=== PATIENT | female | born 1990 | race Caucasian/White ===

== ENCOUNTER 2023-12-14 09:02 | Outpatient (OUT) | payer OTHER, SELFPAY ==
--- NOTE | 2023-12-14 09:05 | US_ITS ---
[address] [address] Patient Name: JUJU WHITE MRN: [id number] date: 1990 Sex: F Assigned Patient Location: [facility] Current Patient Location: [facility] Accession/Order Number: [id number] Exam Date: 12/14/2023 09:05 Report Date: 12/14/2023 10:22 At the request of: DONOVAN TOLBERT Procedure: US OB transvaginal EXAMINATION: US OB transvaginal HISTORY: MISSED MENSES COMPARISON: No relevant comparison available. FINDINGS: Buck intrauterine gestation Gestational sac: 2.07 cm, 6 weeks 4 days CRL: 0.4 cm, 6 weeks 1 day Yolk sac: 2.8 mm Heart rate: Not observed Cervix: Closed, 4.4 cm The uterus is normal, anteverted, anteflexed The ovaries are normal. Clinical age: 10 weeks 2 days Clinical BLANCA: 07/09/2024 Ultrasound age: 6 weeks 3 days Ultrasound BLANCA: 08/05/2024 US/US OB transvaginal IMPRESSION: Likely early intrauterine gestation. Continued surveillance recommended Electronically authenticated by: LUIS LEVINE Date: 12/14/2023 10:22
== END 2023-12-14 09:03 | disposition home or self-care (01) ==
PROVIDERS: Visit Provider Obstetrics & Gynecology
DX: N92.6 Irregular menstruation, unspecified (principal)
CPT/HCPCS: 76817

== ENCOUNTER 2024-01-10 12:15 | Outpatient (OUT) | payer OTHER, SELFPAY ==
[2024-01-10 14:27] LABS: HCG Quantitative 113 mIU/mL
== END 2024-01-10 12:16 | disposition home or self-care (01) ==
LOC: LAB 12:16
PROVIDERS: PCP Family Medicine; Visit Provider Obstetrics & Gynecology
DX: N92.6 Irregular menstruation, unspecified (principal); Z87.59 Personal history of other complications of pregnancy, childbirth and the puerperium
CPT/HCPCS: 36415; 84702

== ENCOUNTER 2024-01-19 09:11 | Outpatient (OUT) | payer SELFPAY ==
--- OUTSIDE RECORDS SUMMARY | 2024-01-19 09:16 | XMS_ITS | CCD ---
Author Organization [facility] Care Team Providers Care Aircraft Systems Repairer Name Role Phone JULIANNA LUIS Archibald Consulting Unavailable DIDI, DONOVAN Admitting Unavailable DIDI, DONOVAN Attending Unavailable DIDI, DONOVAN Consulting Unavailable DIDI, DONOVAN Consulting Unavailable DIDI, DONOVAN Admitting Unavailable DIDI, DONOVAN Attending Unavailable DIDI, DONOVAN Consulting Unavailable DIDI, DONOVAN Admitting Unavailable DIDI, DONOVAN Attending Unavailable Frantz GEIGER Primary Care Physician DIDI, Donovan R Attending Unavailable DIDI, Donovan R Admitting Unavailable DIDI, Donovan R Attending Unavailable DIDI, Donovan R Admitting Unavailable DIDI, Donovan R Admitting Unavailable DIDI, Donovan R Attending Unavailable DIDI, Donovan R Attending Unavailable DIDI, Donovan R Admitting Unavailable DIDI, Donovan R Attending Unavailable DIDI, Donovan R Admitting Unavailable DIDI, DONOVAN Attending Unavailable DIDI, Donovan R Admitting Unavailable DIDI, Donovan R Attending Unavailable Problems Problem Classification Problem Date Documented Date Episodic/Chronic Immunizations and screening for infectious disease (1 source) Encounter for screening for human papillomavirus (HPV); Translations: [ENC SCREENING HUMAN PAPILLOMAVIRUS] Onset: 07-27-2020 Episodic Menstrual disorders (4 sources) Secondary amenorrhea; Translations: [SECONDARY AMENORRHEA] Onset: 07-26-2020 Chronic Other screening for suspected conditions (not mental disorders or infectious disease) (5 sources) Encounter for screening for malignant neoplasm of cervix; Translations: [ENC SCREENING MALIG NEOPLASM CERV] Onset: 07-26-2020 Episodic Results Test Name Value Interpretation Reference Range [facility] 01-05-2024 HCG.beta subunit Qn 1058 m[IU]/mL High 1-3 [facility] Comment on above: Result Comment: 'F N ON < 1 - 3' ' 0.2 - 1 WEEK = 5 TO 50' ' 1 - 2 WEEKS = 50 - 500' ' 2 - 3 WEEKS = 100 - 5000' ' 3 - 4 WEEKS = 500 - 85122' ' 4 - 5 WEEKS = 1000 - 22330' ' 5 - 6 WEEKS = 28266 - 101768' ' 6 - 8 WEEKS = 67518 - 602663' ' 8 - 12 WEEKS = 54616 - 479768' Performed By: #### 2 [id number] #### Pankaj [facility] [address] [place] [address] CHEMISTRYOrdered By: SYSTEM SYSTEM on 01-05-2024 HCG.beta subunit Qn 1058 m[IU]/mL High 1 - 3 mIU/mL [facility] Comment on above: Result Comment: 'F N ON < 1 - 3' ' 0.2 - 1 WEEK = 5 TO 50' ' 1 - 2 WEEKS = 50 - 500' ' 2 - 3 WEEKS = 100 - 5000' ' 3 - 4 WEEKS = 500 - 83954' ' 4 - 5 WEEKS = 1000 - 98319' ' 5 - 6 WEEKS = 44632 - 092499' ' 6 - 8 WEEKS = 99445 - 943123' ' 8 - 12 WEEKS = 64657 - 018061' [facility] 01-02-2024 HCG.beta subunit Qn 7080 m[IU]/mL High 1-3 [facility] Comment on above: Result Comment: 'F N ON < 1 - 3' ' 0.2 - 1 WEEK = 5 TO 50' ' 1 - 2 WEEKS = 50 - 500' ' 2 - 3 WEEKS = 100 - 5000' ' 3 - 4 WEEKS = 500 - 92862' ' 4 - 5 WEEKS = 1000 - 98328' ' 5 - 6 WEEKS = 83904 - 129611' ' 6 - 8 WEEKS = 28357 - 119019' ' 8 - 12 WEEKS = 44178 - 676968' Performed By: #### 2 [id number] #### [facility] [address] [place] [address] CHEMISTRYOrdered By: SYSTEM SYSTEM on 01-02-2024 HCG.beta subunit Qn 7080 m[IU]/mL High 1 - 3 mIU/mL [facility] Comment on above: Result Comment: 'F N ON < 1 - 3' ' 0.2 - 1 WEEK = 5 TO 50' ' 1 - 2 WEEKS = 50 - 500' ' 2 - 3 WEEKS = 100 - 5000' ' 3 - 4 WEEKS = 500 - 28760' ' 4 - 5 WEEKS = 1000 - 51445' ' 5 - 6 WEEKS = 20341 - 727058' ' 6 - 8 WEEKS = 27058 - 745721' ' 8 - 12 WEEKS = 50215 - 787907' [facility] 12-31-20[place] [address] m[IU]/mL High 1-3 [facility] Comment on above: Result Comment: 'F N ON < 1 - 3' ' 0.2 - 1 WEEK = 5 TO 50' ' 1 - 2 WEEKS = 50 - 500' ' 2 - 3 WEEKS = 100 - 5000' ' 3 - 4 WEEKS = 500 - 92627' ' 4 - 5 WEEKS = 1000 - 32563' ' 5 - 6 WEEKS = 57895 - 323878' ' 6 - 8 WEEKS = 51412 - 412185' ' 8 - 12 WEEKS = 39598 - 616574' Performed By: #### 2 [id number] #### Lira [facility] [address] [place] [address] CHEMISTRYOrdered By: SYSTEM SYSTEM on 12-31-2023 [place] [address] m[IU]/mL High 1 - 3 mIU/mL [facility] Comment on above: Result Comment: 'F N ON < 1 - 3' ' 0.2 - 1 WEEK = 5 TO 50' ' 1 - 2 WEEKS = 50 - 500' ' 2 - 3 WEEKS = 100 - 5000' ' 3 - 4 WEEKS = 500 - 58332' ' 4 - 5 WEEKS = 1000 - 81282' ' 5 - 6 WEEKS = 82983 - 171551' ' 6 - 8 WEEKS = 03771 - 900334' ' 8 - 12 WEEKS = 24630 - 194198' ANTI-MULLERIAN HORMONEon Anti-Mullerian Hormone (AMH) 16.9 ng/mL [facility] Comment on above: Result Comment: For assays employing antibodies, the possibility exists for interference by heterophile antibodies in the samples.1 1.Zan Hoyt Interferences in Immunoassays - still a threat. Clin. Chem. 2000; 46: 8727-9707. This test was developed and its performance characteristics determined by [employer]. It has not been cleared or approved by the Food and Drug Administration. Reference Range: Females 31 - 35y: 0.66 - 8.75 Median 3.00 AMH concentrations of >= 1.06 ng/mL is correlated with a better response to ovarian stimulation, produced more retrievable oocytes and higher odds of live according to Javon et al. Fertility and Sterility. 2010: 94:7406-2072. The current AMH test method correlates with the study method with a slope of 0.94. Females at risk of ovarian hyperstimulation syndrome or polycystic ovarian syndrome (PCOS) may exhibit elevated serum AMH concentrations. AMH levels from PCOS patients may be 2 to 5 fold higher than age-appropriate reference interval values. Granulosa cell tumors of the ovary may secrete AMH along with other tumor markers. Elevated AMH is not specific for malignancy, and the assay should not be used exclusively to diagnose or exclude an AMH-secreting ovarian tumor. Performed By: #### A [facility] #### [facility] [address] [place] [address] Marcel Trish US PELVIS AND TRANSVAGon US PELVIS AND TRANSVAG EXAMINATION: US PELVIS AND TRANSVAG HISTORY: Secondary physiologic amenorrhea COMPARISON: No relevant comparison available. FINDINGS: Uterus is normal in size, contour and echotexture measuring 7.7 x 5.7 x 2.9 cm. Uterus is anteverted. The endometrium measures 8.1 mm thick, heterogeneous in echotexture with the area of anechoic echogenicity possibly representing small amount of fluid. The right ovary is normal in size, contour and echotexture measuring 4.7 x 3.6 x 3.1 cm. Normal resistive index of 0.5. Identified the right ovary is an area of anechoic echogenicity measuring 3.0 x 2.8 x 2.4 cm. Left ovary is normal in size, contour and echotexture measuring 4.3 x 1.9 0.6 cm. Normal resistive index of 0.5. Multiple subcentimeter peripheral areas of anechoic echogenicity, normal follicles IMPRESSION: 3 cm right ovarian simple cyst Multiple left ovarian follicles suggestive but not meeting criteria for polycystic ovaries Electronically authenticated by: LUIS LEVINE Date: 2020-07-30 07:43 Normal [facility] PAP ACOG PANEL 2: 30 to 65on 07-29-2020 Age Gdln ACOG Testing 30-65 Normal [facility] Comment on above: Performed By: #### 4 [id number] #### [facility] [address] [address] Marcel Chambers DIAGNOSIS: Comment Normal [facility] Comment on above: Result Comment: NEGA TIVE FOR INTRAEPITHELIAL LESION OR MALIGNANCY. Performed at: WB Performed By: #### 4 [id number] #### [facility] [address] [address] Marcel Chambers HPV Aptima Negative Normal Negative [facility] Comment on above: Result Comment: This nucleic acid amplification test detects fourteen high-risk HPV types (16,18,31,33,35,39,45,51,52,56,58,59,66,68) without differentiation. Performed at: =G Performed By: #### 4 [id number] #### [facility] [address] [address] Marcel Chambers Methodology: Comment Normal [facility] Comment on above: Result Comment: This liquid based ThinPrep(R) pap test was screened with the use of an image guided system. Performed at: WB Performed By: #### 4 [id number] #### [facility] [address] [address] Marcel Chambers Note: Comment Normal [facility] Comment on above: Result Comment: The Pap smear is a screening test designed to aid in the detection of premalignant and malignant conditions of the uterine cervix. It is not a diagnostic procedure and should not be used as the sole means of detecting cervical cancer. Both false-positive and false-negative reports do occur. . Performed at: WB Performed By: #### 4 [id number] #### [facility] [address] [address] Marcel Chambers Performed by: Comment Normal [facility] Comment on above: Result Comment: Ebony Srivastava, Museum Security Chief Performed at: WB Performed By: #### 4 [id number] #### [facility] [address] [place] [address] Marcel Chambers Specimen adequacy: Comment Normal [facility] Comment on above: Result Comment: Sati sfactory for evaluation. Endocervical and/or squamous metaplastic cells (endocervical component) are present. Performed at: WB Performed By: #### 4 [id number] #### [facility] [address] [place] [address] Marcel Chambers . . Normal [facility] Comment on above: Result Comment: Perf ormed at: WB Performed By: #### 4 [id number] #### [facility] [address] [place] [address] Marcelriri Chambers FSHon 07-27-2020 FSH 4.0 mIU/mL Normal [facility] Comment on above: Result Comment: Adul t Female: Follicular phase 3.5 - 12.5 Ovulation phase 4.7 - 21.5 Luteal phase 1.7 - 7.7 Postmenopausal 25.8 - 134.8 Performed By: #### L BCFSH #### [facility] [address] [place] [address] Marcel Chambers LUTEINIZING HORMONE (LH)on 0 07-27-2020 LH 17.8 mIU/mL Normal [facility] Comment on above: Result Comment: Adul t Female: Follicular phase 2.4 - 12.6 Ovulation phase 14.0 - 95.6 Luteal phase 1.0 - 11.4 Postmenopausal 7.7 - 58.5 Performed By: #### L BCLH #### [facility] [address] [place] [address] Marcel Trish PROLACTINon 07-27-2020 Prolactin 7.8 ng/mL Normal 4.8-23.3 [facility] Comment on above: Performed By: #### P ROLAC #### [facility] [address] [place], [place] [id number] Marcelriri Chambers CBC AUTO DIFFon 07-26-2020 Basophils (Bld) [#/Vol] 0.1 103/ul Normal 0.0-0.1 [facility] Comment on above: Performed By: #### C BC #### [facility] [address] [place], [place] [id number] Marcel Trish Basophils/100 WBC (Bld) 0.8 % Normal 0.2-2.0 [facility] Comment on above: Performed By: #### C BC #### [facility] [address] [place], [place] [id number] Marcel Trish Eosinophils (Bld) [#/Vol] 0.0 103/ul Normal 0.0-0.7 [facility] Comment on above: Performed By: #### C BC #### [facility] [address] [place], [place] [id number] Marcel Trish Eosinophils/100 WBC (Bld) 0.7 % Critically low 0.9-7.0 [facility] Comment on above: Performed By: #### C BC #### [facility] [address] [place], [place] [id number] Marcel Trish Erythrocyte distribution width (RBC) [Ratio] 13.1 % Normal 11.0-15.0 [facility] Comment on above: Performed By: #### C BC #### [facility] [address] [place], [place] [id number] Marcel Trish Hematocrit (Bld) [Volume fraction] 38.1 % Normal 36.0-48.0 [facility] Comment on above: Performed By: #### C BC #### [facility] [address] [place], [place] [id number] Marcel Trish Hemoglobin (Bld) [Mass/Vol] 12.4 g/dL Normal 12.0-16.0 [facility] Comment on above: Performed By: #### C BC #### [facility] [address] [place], [place] [id number] Marcel Trish IG # 0.02 10e3/ul Normal 0.00-0.03 [facility] Comment on above: Performed By: #### C BC #### [facility] [address] [place], [place] [id number] Marcel Trish IG % 0.3 % Normal 0.0-0.5 [facility] Comment on above: Performed By: #### C BC #### [facility] [address] [place], [place] [address] Marcel Trish Lymphocytes (Bld) [#/Vol] 1.5 103/ul Normal 1.2-3.8 [facility] Comment on above: Performed By: #### C BC #### [facility] [address] [place], [place] [address] Marcel Trish Lymphocytes/100 WBC (Bld) 24.2 % Normal 20.5-60.0 [facility] Comment on above: Performed By: #### C BC #### [facility] [address] [place], [place] [address] Marcel Trish MANUAL DIFF REQ NO Normal [facility] Comment on above: Performed By: #### C BC #### [facility] [address] [place] [address] Marcel Trish MCH (RBC) [Entitic mass] 28.9 pg Normal 26.7-34.0 [facility] Comment on above: Performed By: #### C BC #### [facility] [address] [place] [address] Marcel Trish MCHC (RBC) [Mass/Vol] 32.5 g/dL Normal 29.9-35.2 [facility] Comment on above: Performed By: #### C BC #### [facility] [address] [place] [address] Marcel Trish MCV (RBC) [Entitic vol] 88.8 fL Normal 81.0-99.0 [facility] Comment on above: Performed By: #### C BC #### [facility] [address] [place], [place] [address] Marcel Trish Monocytes (Bld) [#/Vol] 0.5 103/ul Normal 0.3-0.8 [facility] Comment on above: Performed By: #### C BC #### [facility] [address] [place], [place] [address] Marcel Trish Monocytes/100 WBC (Bld) 8.0 % Normal 1.7-12.0 [facility] Comment on above: Performed By: #### C BC #### [facility] [address] [place], [place] [address] Marcel Trish Neutrophils (Bld) [#/Vol] 3.9 103/ul Normal 1.4-6.5 [facility] Comment on above: Performed By: #### C BC #### [facility] [address], [place] [address] Marcel Trish Neutrophils/100 WBC (Bld) 66.0 % Normal 43.0-75.0 [facility] Comment on above: Performed By: #### C BC #### [facility] [address] [place], [place] [address] Marcel Trish Platelet mean volume (Bld) [Entitic vol] 9.3 fL Critically low 9.5-13.5 [facility] Comment on above: Performed By: #### C BC #### [facility] [address], [place] [address] Marcel Trish Platelets (Bld) [#/Vol] 227 103/ul Normal 150-450 [facility] Comment on above: Performed By: #### C BC #### [facility] [address], [place] [address] Marcel Trish RBC (Bld) [#/Vol] 4.29 106/ul Normal 4.20-5.40 [facility] Comment on above: Performed By: #### C BC #### [facility] [address], [place] [address] Marcel Trish WBC (Bld) [#/Vol] 6.0 103/ul Normal 4.0-11.0 [facility] Comment on above: Performed By: #### C BC #### [facility] [address] [place] [address] Marcel Trish PREG QUANT HCGon 07-26-2020 HCG QUANT <1 Normal [facility] Comment on above: Performed By: #### P REGQNT, TSH #### [facility] [address], [place] [address] Marcel Trish HCG RANGE SEE BELOW Normal [facility] Comment on above: Result Comment: 5-50 0-1 WEEK 40-300 1-2 WEEKS 100-1,000 2-3 WEEKS 500-6,000 3-4 WEEKS 5,000-200,000 1-2 MONTHS 10,000-100,000 2-3 MONTHS 3,000-50,000 2ND TRIMESTER 1,000-50,000 3RD TRIMESTER Performed By: #### P REGQNT, TSH #### [facility] [address], [place] [address] Marcel Chambers TSHon 07-26-2020 TSH Qn 2.208 uIU/mL Normal 0.470-4.680 [facility] Comment on above: Performed By: #### P REGQNT, TSH #### [facility] [address], [place] [address] Marcel Chambers TSH Qn SEE BELOW Normal [facility] Comment on above: Result Comment: <0.3 4 UIU/ml HYPERTHYROID 0.34-5.60 UIU/ml EUTHYROID >5.60 UIU/ml HYPOTHYROID Performed By: #### P REGQNT, TSH #### [facility] [address], [place] [address] Marcel Chambers Encounters Encounter Date Encounter Type Care Provider Facility Start: 01-10-2024 End: 01-10-2024 ambulatory DONOVAN DIDI Not Available Start: 01-05-2024 End: 01-05-2024 ambulatory Donovan R DIDI Facility[facility] Start: 01-05-2024 End: 01-05-2024 Patient encounter procedure Donovan R DIDI [facility] Start: 01-02-2024 End: 01-02-2024 ambulatory Donovan R DIDI Facility:[facility] Start: 01-02-2024 End: 01-02-2024 Patient encounter procedure Donovan R DIDI [facility] Start: 12-31-2023 End: 12-31-2023 ambulatory Donovan R DIDI Facility:[facility] Start: 12-31-2023 End: 12-31-2023 Patient encounter procedure Donovan TOLBERT [facility] Start: 07-29-2020 End: 07-30-2020 Patient encounter procedure LUIS LEVINE Facility:[facility] Start: 07-26-2020 End: 07-26-2020 Patient encounter procedure DONOVAN TOLBERT Facility:[facility] Start: 07-26-2020 End: 07-27-2020 Patient encounter procedure DONOVAN TOLBERT Facility:[facility] Payers Date Payer Category Payer Unknown [id number] 2023 Unknown [id number] 1990 Unknown [id number] 2.16.84 [id number] 1990 Unknown [id number] 2.16.84 [id number] 1990 Unknown [id number] 2.16.84 [id number] 1990 Unknown [id number] 2.16.8 [id number] 1988 Unknown [id number] 2.16.8 [id number] 1988 Unknown [id number] 2.16.8 [id number] 1988 Unknown [id number] 2.16.84 [id number] 1961 Private Health Insurance [id number] Social History Date Type Detail Facility Tobacco smoking status No Smoking Status Entered [facility] Sex Assigned At Female [facility] Evaluation + Plan note Note Date & Type Note Facility Evaluation + Plan note No data available for this section [facility] Hospital Discharge instructions Note Date & Type Note Facility Hospital Discharge instructions No data available for this section [facility] Progress note Note Date & Type Note Facility Progress note No data available for this section [facility] Summary Purpose Family History No Family History Records Found No data available for this section No Family History Records Found No data available for this section No data available for this section No Family History Records FoundNo Family History Records FoundNo Family History Records FoundNo Family History Records Found Advance Directives No Advanced Directives Records FoundNo Advanced Directives Records FoundNo Advanced Directives Records FoundNo Advanced Directives Records FoundNo Advanced Directives Records FoundNo Advanced Directives Records Found Additional Source Comments INFORMATION SOURCE (unrecogn ized section and content) DATE CREATED AUTHOR 08/03/2020 [facility] DATE CREATED AUTHOR AUTHOR'S ORGANIZ ATION [facility]20[facility] DATE CREATED AUTHOR AUTHOR'S ORGANIZ ATION 01/07/2024 [facility] DATE CREATED AUTHOR AUTHOR'S ORGANIZ ATION 01/10/2024 [facility] DATE CREATED AUTHOR AUTHOR'S ORGANIZ ATION 01/12/2024 [facility] EPIC DATE CREATED AUTHOR AUTHOR'S ORGANIZ ATION 01/13/2024 [facility] Patient Care team informatio n (unrecognized section and content) Personnel Name: Frantz GEIGER DO Address: Address: [address] [place] [address] Personnel Name: Frantz GEIGER DO Address: Address: [address] [place] [address] Personnel Name: Frantz GEIGER DO Address: Address: [address] [place] [address] FOR RECORDS PERTAINING TO PATIENTS WHO ARE OR HAVE BEEN ENROLLED IN A CHEMICAL DEPENDENCY/SUBSTANCEABUSE PROGRAM, SOME INFORMATION MAY BE OMITTED. This clinical summary was aggregated from multiple sources. Caution should be exercised in using it in the provision of clinical care. This summary normalizes information from multiple sources, and as a consequence, information in this document may materially change the coding, format and clinical context of patient data. In addition, data may be omitted in some cases. CLINICAL DECISIONS SHOULD BE BASED ON THE PRIMARY CLINICAL RECORDS. [facility]. provides no warranty or guarantee of the accuracy or completeness of information in this document.
[2024-01-19 09:52] LABS: HCG Quantitative 16 mIU/mL
== END 2024-01-19 09:12 | disposition home or self-care (01) ==
PROVIDERS: PCP Family Medicine; Visit Provider Obstetrics & Gynecology
DX: N92.6 Irregular menstruation, unspecified (principal); Z87.59 Personal history of other complications of pregnancy, childbirth and the puerperium
CPT/HCPCS: 36415; 84702

== ENCOUNTER 2024-01-26 08:27 | Outpatient (OUT) | payer SELFPAY ==
--- OUTSIDE RECORDS SUMMARY | 2024-01-26 08:30 | XMS_ITS | CCD ---
Author Organization [facility] Care Team Providers Care Accountant Clerk Name Role Phone JULIANNA LUIS [employer] [...] Results Test Name Value Interpretation Reference Range [facility] 01-05-2024 HCG.beta subunit Qn 1058 m[IU]/mL High 1-3 [facility] [place] [facility] Comment on above: Result Comment: 'F N ON < 1 - 3' ' 0.2 - 1 WEEK = 5 TO 50' ' 1 - 2 WEEKS = 50 - 500' ' 2 - 3 WEEKS = 100 - 5000' ' 3 - 4 WEEKS = 500 - 64035' ' 4 - 5 WEEKS = 1000 - 84034' ' 5 - 6 WEEKS = 32800 - 247493' ' 6 - 8 WEEKS = 15857 - 919823' ' 8 - 12 WEEKS = 57621 - 613401' Performed By: #### 2 [id number] #### Pankaj [facility] [address] [place] [address] CHEMISTRYOrdered By: SYSTEM SYSTEM on 01-05-2024 HCG.beta [...] 3 - 4 WEEKS = 500 - 48700' ' 4 - 5 WEEKS = 1000 - 73807' ' 5 - 6 WEEKS = 37243 - 606555' ' 6 - 8 WEEKS = 73095 - 066941' ' 8 - 12 WEEKS = 72698 - 028840' [facility] 01-02-2024 HCG.beta subunit Qn 7080 m[IU]/mL High 1-3 [facility] [place] [facility] Comment on above: Result Comment: 'F N ON < 1 - 3' ' 0.2 - 1 WEEK = 5 TO 50' ' 1 - 2 WEEKS = 50 - 500' ' 2 - 3 WEEKS = 100 - 5000' ' 3 - 4 WEEKS = 500 - 64737' ' 4 - 5 WEEKS = 1000 - 54089' ' 5 - 6 WEEKS = 84395 - 145928' ' 6 - 8 WEEKS = 63267 - 368016' ' 8 - 12 WEEKS = 79660 - 330247' Performed By: #### 2 [id number] #### Pankaj [facility] [address] [place] [address] CHEMISTRYOrdered By: SYSTEM SYSTEM on 01-02-2024 HCG.beta [...] 3 - 4 WEEKS = 500 - 69069' ' 4 - 5 WEEKS = 1000 - 23990' ' 5 - 6 WEEKS = 83032 - 449692' ' 6 - 8 WEEKS = 03871 - 098364' ' 8 - 12 WEEKS = 97720 - 125227' [facility] 12-31-20[place] [address] m[IU]/mL High 1-[address] [facility] Comment on above: Result Comment: 'F N ON < 1 - 3' ' 0.2 - 1 WEEK = 5 TO 50' ' 1 - 2 WEEKS = 50 - 500' ' 2 - 3 WEEKS = 100 - 5000' ' 3 - 4 WEEKS = 500 - 63918' ' 4 - 5 WEEKS = 1000 - 55360' ' 5 - 6 WEEKS = 18050 - 996555' ' 6 - 8 WEEKS = 40886 - 899391' ' 8 - 12 WEEKS = 22242 - 013594' Performed By: #### 2 [id number] #### Lira [facility] [address] [place] [address] CHEMISTRYOrdered By: SYSTEM SYSTEM on 12-31-2023 [place] [address] m[IU]/mL High 1 - 3 mIU/mL [facility] Comment on above: Result Comment: 'F N ON < 1 - 3' ' 0.2 - 1 WEEK = 5 TO 50' ' 1 - 2 WEEKS = 50 - 500' ' 2 - 3 WEEKS = 100 - 5000' ' 3 - 4 WEEKS = 500 - 81872' ' 4 - 5 WEEKS = 1000 - 15453' ' 5 - 6 WEEKS = 67586 - 393099' ' 6 - 8 WEEKS = 14231 - 231284' ' 8 - 12 WEEKS = 95773 - 731040' ANTI-MULLERIAN HORMONEon Anti-Mullerian Hormone (AMH) 16.9 ng/mL [facility] Comment on above: Result Comment: For assays employing antibodies, the possibility exists for interference by heterophile antibodies in the samples.1 1.Zan Hoyt Interferences in Immunoassays - still a threat. Clin. Chem. 2000; 46: 7538-0802. This test was developed and its performance characteristics determined by [employer]. It has not been cleared or approved by the Food and Drug Administration. Reference Range: Females 31 - 35y: 0.66 - 8.75 Median 3.00 AMH concentrations of >= 1.06 ng/mL is correlated with a better response to ovarian stimulation, produced more retrievable oocytes and higher odds of live according to Javon et al. Fertility and Sterility. 2010: 94:6409-5167. The current AMH test method correlates with [...] AMH-secreting ovarian tumor. Performed By: #### A [facility] #### [facility] [address] [place] [address] Marcel Trish US PELVIS AND TRANSVAGon US [...] by: LUIS LEVINE Date: 2020-07-30 07:43 Normal [facility] PAP ACOG PANEL 2: 30 to 65on 07-29-2020 Age Gdln ACOG Testing 30-65 Normal [facility] Comment on above: Performed By: #### [id number] #### [facility] [address] [address] Marcel Chambers DIAGNOSIS: Comment Normal [facility] Comment on above: Result Comment: NEGA TIVE FOR INTRAEPITHELIAL LESION OR MALIGNANCY. Performed at: WB Performed By: #### 4 [id number] #### [facility] [address] [address] Marcel Chambers HPV Aptima Negative Normal Negative [facility] Comment on above: Result Comment: This nucleic acid amplification test detects fourteen high-risk HPV types (16,18,31,33,35,39,45,51,52,56,58,59,66,68) without differentiation. Performed at: =G Performed By: #### 4 [id number] #### [facility] [address] [address] Marcel Chambers Methodology: Comment Normal [facility] Comment on above: Result Comment: This liquid based ThinPrep(R) pap test was screened with the use of an image guided system. Performed at: WB Performed By: #### 4 [id number] #### [facility] [address] [address] Marcel Chambers Note: Comment Normal [facility] Comment on above: Result Comment: The Pap smear is a screening test designed to aid in the detection of premalignant and malignant conditions of the uterine cervix. It is not a diagnostic procedure and should not be used as the sole means of detecting cervical cancer. Both false-positive and false-negative reports do occur. . Performed at: WB Performed By: #### 4 [id number] #### [facility] [address] [address] Marcel Chambers Performed by: Comment Normal [facility] Comment on above: Result Comment: Ebony Srivastava, [employer] Mach[employer] Lab Manager Performed at: WB Performed By: #### 4 [id number] #### [facility] [address] [place] [address] Marcel Chambers Specimen adequacy: Comment Normal [facility] Comment on above: Result Comment: Sati sfactory for evaluation. Endocervical and/or squamous metaplastic cells (endocervical component) are present. Performed at: WB Performed By: #### 4 [id number] #### [facility] [address] [place] [address] Marcel Chambers . . Normal [facility] Comment on above: Result Comment: Perf ormed at: WB Performed By: #### 4 [id number] #### [facility] [address] [place] [address] Marcelriri Chambers FSHon 07-27-2020 FSH 4.0 mIU/mL Normal [facility] Comment on above: Result Comment: Adul t Female: Follicular phase 3.5 - 12.5 Ovulation phase 4.7 - 21.5 Luteal phase 1.7 - 7.7 Postmenopausal 25.8 - 134.8 Performed By: #### L BCFSH #### [facility] [address] [place] [address] Marcel Chambers LUTEINIZING HORMONE (LH)on 0 07-27-2020 LH 17.8 mIU/mL Normal [facility] Comment on above: Result Comment: Adul t Female: Follicular phase 2.4 - 12.6 Ovulation phase 14.0 - 95.6 Luteal phase 1.0 - 11.4 Postmenopausal 7.7 - 58.5 Performed By: #### L BCLH #### [facility] [address] [place] [address] Marcel Trish PROLACTINon 07-27-2020 Prolactin 7.8 ng/mL Normal 4.8-23.3 [facility] Comment on above: Performed By: #### P ROLAC #### [facility] [address] [place], [place] [id number] Marcelriri Chambers CBC AUTO DIFFon 07-26-2020 Basophils (Bld) [#/Vol] 0.1 103/ul Normal 0.0-0.1 [facility] Comment on above: Performed By: #### C BC #### [facility] [address] [place], [place] [id number] Marecl Trish Basophils/100 WBC (Bld) 0.8 % Normal 0.2-2.0 [facility] Comment on above: Performed By: #### C BC #### [facility] [address] [place], [place] [id number] Marcel Trish Eosinophils (Bld) [#/Vol] 0.0 103/ul Normal 0.0-0.7 [facility] Comment on above: Performed By: #### C BC #### [facility] [address] [place], [place] [address] Marcel Trish Eosinophils/100 WBC (Bld) 0.7 % Critically low 0.9-7.0 [facility] Comment on above: Performed By: #### C BC #### [facility] [address] [place], [place] [address] Marcel Trish Erythrocyte distribution width (RBC) [Ratio] 13.1 % Normal 11.0-15.0 [facility] Comment on above: Performed By: #### C BC #### [facility] [address] [place], [place] [id number] Marcel Trish Hematocrit (Bld) [Volume fraction] 38.1 % Normal 36.0-48.0 [facility] Comment on above: Performed By: #### C BC #### [facility] [address] [place], [place] [address] Marcel Trish Hemoglobin (Bld) [Mass/Vol] 12.4 g/dL Normal 12.0-16.0 [facility] Comment on above: Performed By: #### C BC #### [facility] [address] [place], [place] [address] Marcel Trish IG # 0.02 10e3/ul Normal 0.00-0.03 [facility] Comment on above: Performed By: #### C BC #### [facility] [address] [place], [place] [address] Marcel Trish IG % 0.3 % Normal 0.0-0.5 [facility] Comment on above: Performed By: #### C BC #### [facility] [address], [place] [address] Marcel Trish Lymphocytes (Bld) [#/Vol] 1.5 103/ul Normal 1.2-3.8 [facility] Comment on above: Performed By: #### C BC #### [facility] [address], [place] [address] Marcel Trish Lymphocytes/100 WBC (Bld) 24.2 % Normal 20.5-60.0 [facility] Comment on above: Performed By: #### C BC #### [facility] [address], [place] [address] Marcel Trish MANUAL DIFF REQ NO Normal [facility] Comment on above: Performed By: #### C BC #### [facility] [address] [place] [address] Marcel Trish MCH (RBC) [Entitic mass] 28.9 pg Normal 26.7-34.0 [facility] Comment on above: Performed By: #### C BC #### [facility] [address] [place] [address] Marcel Trish MCHC (RBC) [Mass/Vol] 32.5 g/dL Normal 29.9-35.2 [facility] Comment on above: Performed By: #### C BC #### [facility] [address] [place] [address] Marcel Trish MCV (RBC) [Entitic vol] 88.8 fL Normal 81.0-99.0 [facility] Comment on above: Performed By: #### C BC #### [facility] [address], [place] [address] Marcel Trish Monocytes (Bld) [#/Vol] 0.5 103/ul Normal 0.3-0.8 [facility] Comment on above: Performed By: #### C BC #### [facility] [address], [place] [address] Marcel Trish Monocytes/100 WBC (Bld) 8.0 % Normal 1.7-12.0 [facility] Comment on above: Performed By: #### C BC #### [facility] [address], [place] [address] Marcel Trish Neutrophils (Bld) [#/Vol] 3.9 103/ul Normal 1.4-6.5 [facility] Comment on above: Performed By: #### C BC #### [facility] [address], [place] [address] Marcel Trish Neutrophils/100 WBC (Bld) 66.0 % Normal 43.0-75.0 [facility] Comment on above: Performed By: #### C BC #### [facility] [address], [place] [address] Marcel Trish Platelet mean volume (Bld) [Entitic vol] 9.3 fL Critically low 9.5-13.5 [facility] Comment on above: Performed By: #### C BC #### [facility] [address], [place] [address] Marcel Trish Platelets (Bld) [#/Vol] 227 103/ul Normal 150-450 [facility] Comment on above: Performed By: #### C BC #### [facility] [address], [place] [address] Marcel Trish RBC (Bld) [#/Vol] 4.29 106/ul Normal 4.20-5.40 [facility] Comment on above: Performed By: #### C BC #### [facility] [address], [place] [address] Marcel Trish WBC (Bld) [#/Vol] 6.0 103/ul Normal 4.0-11.0 [facility] Comment on above: Performed By: #### C BC #### [facility] [address] [place] [address] Marcel Trish PREG QUANT HCGon 07-26-2020 HCG QUANT <1 Normal [facility] Comment on above: Performed By: #### P REGQNT, TSH #### [facility] [address], [place] [address] Marcel Trish HCG RANGE SEE BELOW Normal [facility] Comment on above: Result Comment: 5-50 0-1 WEEK 40-300 1-2 WEEKS 100-1,000 2-3 WEEKS 500-6,000 3-4 WEEKS 5,000-200,000 1-2 MONTHS 10,000-100,000 2-3 MONTHS 3,000-50,000 2ND TRIMESTER 1,000-50,000 3RD TRIMESTER Performed By: #### P REGQNT, TSH #### [facility] [address], [place] [address] Marcel Chambers TSHon 07-26-2020 TSH Qn 2.208 uIU/mL Normal 0.470-4.680 [facility] Comment on above: Performed By: #### P REGQNT, TSH #### [facility] [address], [place] [address] Marcel Chambers TSH Qn SEE BELOW Normal [facility] Comment on above: Result Comment: <0.3 4 UIU/ml HYPERTHYROID 0.34-5.60 UIU/ml EUTHYROID >5.60 UIU/ml HYPOTHYROID Performed By: #### P REGQNT, TSH #### [facility] [address], [place] [address] Marcel Chambers Encounters Encounter Date Encounter Type Care Provider Facility Start: 01-10-2024 End: 01-10-2024 ambulatory DONOVAN DIDI Not Available Start: 01-05-2024 End: 01-05-2024 ambulatory Donovan R DIDI Facility:[facility] Start: 01-05-2024 End: 01-05-2024 Patient encounter procedure Donovan R DIDI [facility] Start: 01-02-2024 End: 01-02-2024 ambulatory Donovan R DIDI Facility:[facility] Start: 01-02-2024 End: 01-02-2024 Patient encounter procedure Donovan R DIDI [facility] Start: 12-31-2023 End: 12-31-2023 ambulatory Donovan R DIDI Facility:[facility] Start: 12-31-2023 End: 12-31-2023 Patient encounter procedure Donovan TOLBERT [facility] Start: 07-29-2020 End: 07-30-2020 Patient encounter procedure LUIS LEVINE Facility:[facility] Start: 07-26-2020 End: 07-26-2020 Patient encounter procedure DONOVAN TOLBERT Facility:[facility] Start: 07-26-2020 End: 07-27-2020 Patient encounter procedure DONOVAN TOLBERT Facility:[facility] Payers Date Payer Category Payer Unknown [id number] 2023 Unknown [id number] 1990 Unknown [id number] 2.16.84 [id number] 1988 Unknown [id number] 2.16.84 [id number] 1988 Unknown [id number] 2.16.84 [id number] 1988 Unknown [id number] 2.16.8 [id number] 1988 Unknown [id number] 2.16.8 [id number] 1988 Unknown [id number] 2.16.8 [id number] 1988 Unknown [id number] 2.16.84 [id number] 1959 Private Health Insurance [id number] Social History Date Type Detail Facility Tobacco smoking status No Smoking Status Entered [facility] Sex Assigned At Female [facility] Evaluation + Plan note Note Date & Type Note Facility Evaluation + Plan note No data available for this section [facility] Hospital Discharge instructions Note Date & Type Note Facility Hospital Discharge instructions No data available for this section [facility] Progress note Note Date & Type Note Facility Progress note No data available for this section [facility] Summary Purpose Family History No Family [...] DATE CREATED AUTHOR AUTHOR'S ORGANIZ ATION 01/02/2024 [facility] DATE CREATED AUTHOR AUTHOR'S ORGANIZ ATION 01/07/2024 [facility] DATE CREATED AUTHOR AUTHOR'S ORGANIZ ATION 01/10/2024 [facility] DATE CREATED AUTHOR AUTHOR'S ORGANIZ ATION 01/12/2024 [facility] EPIC DATE CREATED AUTHOR AUTHOR'S ORGANIZ ATION 01/13/2024 [facility] Patient Care team informatio n (unrecognized section and content) Personnel Name: Frantz GEIGER DO Address: Address: [address] [place] [address] Personnel Name: Frantz GEIGER DO Address: Address: [address] [place] [address] Personnel Name: Frantz GEIGER DO Address: Address: [address] [place] [address] FOR RECORDS PERTAINING TO PATIENTS WHO ARE [...] BE BASED ON THE PRIMARY CLINICAL RECORDS. [employer] [facility]. provides no warranty or guarantee of the accuracy or completeness of information in this document.
[2024-01-26 10:10] LABS: HCG Quantitative 7 mIU/mL
== END 2024-01-26 08:28 | disposition home or self-care (01) ==
PROVIDERS: PCP Family Medicine; Visit Provider Obstetrics & Gynecology
DX: N92.6 Irregular menstruation, unspecified (principal); Z87.59 Personal history of other complications of pregnancy, childbirth and the puerperium
CPT/HCPCS: 36415; 84702

== ENCOUNTER 2024-04-08 16:55 | Outpatient (OUT) | payer OTHER, SELFPAY ==
--- NOTE | 2024-04-08 | XR_ITS ---
The [address] [address] Patient Name: JUJU WHITE MRN: [id number] date: 1990 Sex: F Assigned Patient Location: [facility] Current Patient Location: [facility] Accession/Order Number: [id number] Exam Date: 04/08/2024 17:05 Report Date: 04/10/2024 06:59 At the request of: NON-STAFF PHYSICIAN Procedure: XR chest 2V EXAMINATION: XR chest 2V HISTORY: Pneumonia; J18.9 COMPARISON: No relevant comparison available. FINDINGS: LUNGS: No significant pulmonary parenchymal abnormalities. VASCULATURE: No increased pulmonary vasculature. PLEURA: No pneumothorax, effusion, or pleural thickening. CARDIAC: No cardiomegaly or cardiac silhouette abnormality. MEDIASTINUM: No visible mass or adenopathy. BONES: No fracture or visible bone lesion. OTHER: Negative. XR/XR chest 2V IMPRESSION: 1. No acute cardiopulmonary process. Electronically authenticated by: KERRI TAVERAS Date: 04/10/2024 06:59
--- OUTSIDE RECORDS SUMMARY | 2024-04-08 17:00 | XMS_ITS | CCD ---
Author Organization [facility] Care Team Providers Care Coverage Analyst Name Role Phone JULIANNA LUIS [employer] [...] Results Test Name Value Interpretation Reference Range [facility] 01-05-2024 HCG.beta subunit Qn 1058 m[IU]/mL High 1-3 [facility] Comment on above: Result Comment: 'F N ON < 1 - 3' ' 0.2 - 1 WEEK = 5 TO 50' ' 1 - 2 WEEKS = 50 - 500' ' 2 - 3 WEEKS = 100 - 5000' ' 3 - 4 WEEKS = 500 - 03160' ' 4 - 5 WEEKS = 1000 - 89774' ' 5 - 6 WEEKS = 32922 - 698628' ' 6 - 8 WEEKS = 55307 - 825578' ' 8 - 12 WEEKS = 13522 - 046282' Performed By: #### 2 [id number] #### Pankaj [facility] [address] [place] [address] CHEMISTRYOrdered By: SYSTEM SYSTEM on 01-05-2024 HCG.beta [...] 3 - 4 WEEKS = 500 - 86998' ' 4 - 5 WEEKS = 1000 - 17520' ' 5 - 6 WEEKS = 15319 - 293193' ' 6 - 8 WEEKS = 21448 - 453103' ' 8 - 12 WEEKS = 00875 - 739388' [facility] 01-02-2024 HCG.beta subunit Qn 7080 m[IU]/mL High 1-3 [facility] Comment on above: Result Comment: 'F N ON < 1 - 3' ' 0.2 - 1 WEEK = 5 TO 50' ' 1 - 2 WEEKS = 50 - 500' ' 2 - 3 WEEKS = 100 - 5000' ' 3 - 4 WEEKS = 500 - 91373' ' 4 - 5 WEEKS = 1000 - 93280' ' 5 - 6 WEEKS = 93833 - 749885' ' 6 - 8 WEEKS = 06956 - 163016' ' 8 - 12 WEEKS = 56171 - 736622' Performed By: #### 2 [id number] #### [facility] [address] [place] [address] CHEMISTRYOrdered By: SYSTEM SYSTEM on 01-02-2024 HCG.beta [...] 3 - 4 WEEKS = 500 - 16248' ' 4 - 5 WEEKS = 1000 - 58833' ' 5 - 6 WEEKS = 32511 - 499660' ' 6 - 8 WEEKS = 31523 - 753593' ' 8 - 12 WEEKS = 94739 - 663919' [facility] 12-31-20[place] [address] m[IU]/mL High 1-3 [facility] Comment on above: Result Comment: 'F N ON < 1 - 3' ' 0.2 - 1 WEEK = 5 TO 50' ' 1 - 2 WEEKS = 50 - 500' ' 2 - 3 WEEKS = 100 - 5000' ' 3 - 4 WEEKS = 500 - 97308' ' 4 - 5 WEEKS = 1000 - 94909' ' 5 - 6 WEEKS = 95227 - 454767' ' 6 - 8 WEEKS = 22577 - 903111' ' 8 - 12 WEEKS = 41209 - 816890' Performed By: #### 2 [id number] #### Lira [facility] [address] [place] [address] CHEMISTRYOrdered By: SYSTEM SYSTEM on 12-31-2023 [place] [address] m[IU]/mL High 1 - 3 mIU/mL [facility] Comment on above: Result Comment: 'F N ON < 1 - 3' ' 0.2 - 1 WEEK = 5 TO 50' ' 1 - 2 WEEKS = 50 - 500' ' 2 - 3 WEEKS = 100 - 5000' ' 3 - 4 WEEKS = 500 - 43232' ' 4 - 5 WEEKS = 1000 - 95127' ' 5 - 6 WEEKS = 17307 - 323697' ' 6 - 8 WEEKS = 88761 - 435445' ' 8 - 12 WEEKS = 41666 - 856065' ANTI-MULLERIAN HORMONEon Anti-Mullerian Hormone (AMH) 16.9 ng/mL [facility] Comment on above: Result Comment: For assays employing antibodies, the possibility exists for interference by heterophile antibodies in the samples.1 1.Zan Hoyt Interferences in Immunoassays - still a threat. Clin. Chem. 2000; 46: 3821-5889. This test was developed and its performance characteristics determined by [employer]. It has not been cleared or approved by the Food and Drug Administration. Reference Range: Females 31 - 35y: 0.66 - 8.75 Median 3.00 AMH concentrations of >= 1.06 ng/mL is correlated with a better response to ovarian stimulation, produced more retrievable oocytes and higher odds of live according to Javon et al. Fertility and Sterility. 2010: 94:2204-2596. The current AMH test method correlates with [...] AMH-secreting ovarian tumor. Performed By: #### A [facility] #### [facility] [place] [facility] [address] [place] [address] Marcel Trish US PELVIS AND TRANSVAGon US [...] by: LUIS LEVINE Date: 2020-07-30 07:43 Normal [facility] PAP ACOG PANEL 2: 30 to 65on 07-29-2020 Age Gdln ACOG Testing 30-65 Normal [facility] Comment on above: Performed By: #### [id number] #### [facility] [place] [facility] [address] [address] Marcel Chambers DIAGNOSIS: Comment Normal [facility] Comment on above: Result Comment: NEGA TIVE FOR INTRAEPITHELIAL LESION OR MALIGNANCY. Performed at: WB Performed By: #### 4 [id number] #### [facility] [place] [facility] [address] [address] Marcel Chambers HPV Aptima Negative Normal Negative [facility] Comment on above: Result Comment: This nucleic acid amplification test detects fourteen high-risk HPV types (16,18,31,33,35,39,45,51,52,56,58,59,66,68) without differentiation. Performed at: =G Performed By: #### 4 [id number] #### [facility] [place] [facility] [address] [address] Marcel Chambers Methodology: Comment Normal [facility] Comment on above: Result Comment: This liquid based ThinPrep(R) pap test was screened with the use of an image guided system. Performed at: WB Performed By: #### 4 [id number] #### [facility] [place] [facility] [address] [address] Marcel Chambers Note: Comment Normal [facility] Comment on above: Result Comment: The Pap smear is a screening test designed to aid in the detection of premalignant and malignant conditions of the uterine cervix. It is not a diagnostic procedure and should not be used as the sole means of detecting cervical cancer. Both false-positive and false-negative reports do occur. . Performed at: WB Performed By: #### 4 [id number] #### [facility] [place] [facility] [address] [address] Marcel Chambers Performed by: Comment Normal [facility] Comment on above: Result Comment: Ebony Srivastava, Electrophysiology Nurse Practitioner Performed at: WB Performed By: #### 4 [id number] #### [facility] [place] [facility] [address] [place] [address] Marcel Chambers Specimen adequacy: Comment Normal [facility] Comment on above: Result Comment: Sati sfactory for evaluation. Endocervical and/or squamous metaplastic cells (endocervical component) are present. Performed at: WB Performed By: #### [id number] #### [facility] [place] [facility] [address] [place] [address] Marcel Chambers . . Normal [facility] Comment on above: Result Comment: Perf ormed at: WB Performed By: #### 4 [id number] #### [facility] [place] [facility] [address] [place] [address] Marcelriri Chambers FSHon 07-27-2020 FSH 4.0 mIU/mL Normal [facility] Comment on above: Result Comment: Adul t Female: Follicular phase 3.5 - 12.5 Ovulation phase 4.7 - 21.5 Luteal phase 1.7 - 7.7 Postmenopausal 25.8 - 134.8 Performed By: #### L BCFSH #### [facility] [place] [facility] [address] [place] [address] Marcel Chambers LUTEINIZING HORMONE (LH)on 0 07-27-2020 LH 17.8 mIU/mL Normal [facility] Comment on above: Result Comment: Adul t Female: Follicular phase 2.4 - 12.6 Ovulation phase 14.0 - 95.6 Luteal phase 1.0 - 11.4 Postmenopausal 7.7 - 58.5 Performed By: #### L BCLH #### [facility] [place] [facility] [address] [place] [address] Marcel Trish PROLACTINon 07-27-2020 Prolactin 7.8 ng/mL Normal 4.8-23.3 [facility] Comment on above: Performed By: #### P ROLAC #### [facility] [place] [facility] [address] [place], [place] [id number] Marcelriri Chambers CBC AUTO DIFFon 07-26-2020 Basophils (Bld) [#/Vol] 0.1 103/ul Normal 0.0-0.1 [facility] Comment on above: Performed By: #### C BC #### [facility] [place] [facility] [address] [place], [place] [address] Marcel Trish Basophils/100 WBC (Bld) 0.8 % Normal 0.2-2.0 [facility] [place] [facility] Comment on above: Performed By: #### C BC #### [facility] [place] [facility] [address] [place], [place] [address] Marcel Trish Eosinophils (Bld) [#/Vol] 0.0 103/ul Normal 0.0-0.7 [facility] [place] [facility] Comment on above: Performed By: #### C BC #### [facility] [place] [facility] [address] [place], [place] [address] Marcel Trish Eosinophils/100 WBC (Bld) 0.7 % Critically low 0.9-7.0 [facility] Comment on above: Performed By: #### C BC #### [facility] [place] [facility] [address] [place], [place] [address] Marcel Trish Erythrocyte distribution width (RBC) [Ratio] 13.1 % Normal 11.0-15.0 [facility] Comment on above: Performed By: #### C BC #### [facility] [place] [facility] [address] [place], [place] [address] Marcel Trish Hematocrit (Bld) [Volume fraction] 38.1 % Normal 36.0-48.0 [facility] Comment on above: Performed By: #### C BC #### [facility] [place] [facility] [address] [place], [place] [address] Marcel Trish Hemoglobin (Bld) [Mass/Vol] 12.4 g/dL Normal 12.0-16.0 [facility] [place] [facility] Comment on above: Performed By: #### C BC #### [facility] [place] [facility] [address] [place], [place] [address] Marcel Trish IG # 0.02 10e3/ul Normal 0.00-0.03 [facility] [place] [facility] Comment on above: Performed By: #### C BC #### [facility] [place] [facility] [address] [place], [place] [address] Marcel Trish IG % 0.3 % Normal 0.0-0.5 [facility] [place] [facility] Comment on above: Performed By: #### C BC #### [facility] [place] [facility] [address], [place] [address] Marcel Trish Lymphocytes (Bld) [#/Vol] 1.5 103/ul Normal 1.2-3.8 [facility] Comment on above: Performed By: #### C BC #### [facility] [place] [facility] [address], [place] [address] Marcel Trish Lymphocytes/100 WBC (Bld) 24.2 % Normal 20.5-60.0 [facility] Comment on above: Performed By: #### C BC #### [facility] [place] [facility] [address], [place] [address] Marcel Trish MANUAL DIFF REQ NO Normal [facility] Comment on above: Performed By: #### C BC #### [facility] [place] [facility] [address] [place] [address] Marcel Trish MCH (RBC) [Entitic mass] 28.9 pg Normal 26.7-34.0 [facility] Comment on above: Performed By: #### C BC #### [facility] [place] [facility] [address] [place] [address] Marcel Trish MCHC (RBC) [Mass/Vol] 32.5 g/dL Normal 29.9-35.2 [facility] Comment on above: Performed By: #### C BC #### [facility] [place] [facility] [address] [place] [address] Marcel Trish MCV (RBC) [Entitic vol] 88.8 fL Normal 81.0-99.0 [facility] Comment on above: Performed By: #### C BC #### [facility] [place] [facility] [address], [place] [address] Marcel Trish Monocytes (Bld) [#/Vol] 0.5 103/ul Normal 0.3-0.8 [facility] Comment on above: Performed By: #### C BC #### [facility] [place] [facility] [address], [place] [address] Marcel Trish Monocytes/100 WBC (Bld) 8.0 % Normal 1.7-12.0 [facility] Comment on above: Performed By: #### C BC #### [facility] [place] [facility] [address], [place] [address] Marcel Trish Neutrophils (Bld) [#/Vol] 3.9 103/ul Normal 1.4-6.5 [facility] Comment on above: Performed By: #### C BC #### [facility] [place] [facility] [address], [place] [address] Marcel Trish Neutrophils/100 WBC (Bld) 66.0 % Normal 43.0-75.0 [facility] Comment on above: Performed By: #### C BC #### [facility] [place] [facility] [address], [place] [address] Marcel Trish Platelet mean volume (Bld) [Entitic vol] 9.3 fL Critically low 9.5-13.5 [facility] Comment on above: Performed By: #### C BC #### [facility] [place] [facility] [address], [place] [address] Marcel Trish Platelets (Bld) [#/Vol] 227 103/ul Normal 150-450 [facility] Comment on above: Performed By: #### C BC #### [facility] [place] [facility] [address], [place] [address] Marcel Trish RBC (Bld) [#/Vol] 4.29 106/ul Normal 4.20-5.40 [facility] Comment on above: Performed By: #### C BC #### [facility] [place] [facility] [address], [place] [address] Marcel Trish WBC (Bld) [#/Vol] 6.0 103/ul Normal 4.0-11.0 [facility] Comment on above: Performed By: #### C BC #### [facility] [place] [facility] [address] [place] [address] Marcel Trish PREG QUANT HCGon 07-26-2020 HCG QUANT <1 Normal [facility] Comment on above: Performed By: #### P REGQNT, TSH #### [facility] [place] [facility] [address], [place] [address] Marcel Trish HCG RANGE SEE BELOW Normal [facility] [place] [facility] Comment on above: Result Comment: 5-50 0-1 WEEK 40-300 1-2 WEEKS 100-1,000 2-3 WEEKS 500-6,000 3-4 WEEKS 5,000-200,000 1-2 MONTHS 10,000-100,000 2-3 MONTHS 3,000-50,000 2ND TRIMESTER 1,000-50,000 3RD TRIMESTER Performed By: #### P REGQNT, TSH #### [facility] [place] [facility] [address], [place] [address] Marcel Chambers TSHon 07-26-2020 TSH Qn 2.208 uIU/mL Normal 0.470-4.680 [facility] Comment on above: Performed By: #### P REGQNT, TSH #### [facility] [place] [facility] [address], [place] [address] Marcel Chambers TSH Qn SEE BELOW Normal [facility] [place] [facility] Comment on above: Result Comment: <0.3 4 UIU/ml HYPERTHYROID 0.34-5.60 UIU/ml EUTHYROID >5.60 UIU/ml HYPOTHYROID Performed By: #### P REGQNT, TSH #### [facility] [place] [facility] [address], [place] [address] Marcel Chambers Encounters Encounter Date Encounter Type Care Provider Facility Start: 01-10-2024 End: 01-10-2024 ambulatory DONOVAN DIDI Not Available Start: 01-05-2024 End: 01-05-2024 ambulatory Donovan R DIDI Facility:[facility] Start: 01-05-2024 End: 01-05-2024 Patient encounter procedure Donovan R DIDI [facility] Start: 01-02-2024 End: 01-02-2024 ambulatory Donovan R DIDI Facility:[facility] Start: 01-02-2024 End: 01-02-2024 Patient encounter procedure Donovan R DIDI [facility] Start: 12-31-2023 End: 12-31-2023 ambulatory Donovan R DIDI Facility:[facility] Start: 12-31-2023 End: 12-31-2023 Patient encounter procedure Donovan TOLBERT [facility] Start: 07-29-2020 End: 07-30-2020 Patient encounter procedure LUIS LEVINE Facility:[facility] Start: 07-26-2020 End: 07-26-2020 Patient encounter procedure DONOVAN TOLBERT Facility:[facility] Start: 07-26-2020 End: 07-27-2020 Patient encounter procedure DONOVAN TOLBERT Facility:[facility] Payers Date Payer Category Payer Unknown [id number] 2023 Unknown [id number] 1988 Unknown [id number] 2.16.84 [id number] 1988 Unknown [id number] 2.16.84 [id number] 1988 Unknown [id number] 2.16.84 [id number] 1988 Unknown [id number] 2.16.8 [id number] 1988 Unknown [id number] 2.16.8 [id number] 1988 Unknown [id number] 2.16.8 [id number] 1988 Unknown [id number] 2.16.84 [id number] 1959 Private Health Insurance [id number] Social History Date Type Detail Facility Tobacco smoking status No Smoking Status Entered [facility] Sex Assigned At Female [facility] Evaluation + Plan note Note Date & Type Note Facility Evaluation + Plan note No data available for this section [facility] Hospital Discharge instructions Note Date & Type Note Facility Hospital Discharge instructions No data available for this section [facility] Progress note Note Date & Type Note Facility Progress note No data available for this section [facility] Summary Purpose Family History No Family History [...] and content) DATE CREATED AUTHOR 08/03/2020 [facility] DATE CREATED AUTHOR AUTHOR'S ORGANIZ ATION 01/02/2024 [facility] DATE CREATED AUTHOR AUTHOR'S ORGANIZ ATION 01/07/2024 [facility] DATE CREATED AUTHOR AUTHOR'S ORGANIZ ATION 01/10/2024 [facility] DATE CREATED AUTHOR AUTHOR'S ORGANIZ ATION 01/12/2024 [facility] EPIC DATE CREATED AUTHOR AUTHOR'S ORGANIZ ATION 01/13/2024 [facility] Patient Care team informatio n (unrecognized section and content) Personnel Name: Frantz GEIGER DO Address: Address: [address] [place] [address] Personnel Name: Frantz GEIGER DO Address: Address: [address] [place] [address] Personnel Name: Frantz GEIGER DO Address: Address: [address] [place] [address] FOR RECORDS PERTAINING TO PATIENTS WHO ARE [...] BE BASED ON THE PRIMARY CLINICAL RECORDS. [employer] [facility]. provides no warranty or guarantee of the accuracy or completeness of information in this document.
== END 2024-04-08 16:56 | disposition home or self-care (01) ==
LOC: RAD 16:56
PROVIDERS: PCP Family Medicine
DX: J18.9 Pneumonia, unspecified organism (principal)
CPT/HCPCS: 71046